=== PATIENT | male | born 1995 | race Caucasian/White ===

== ENCOUNTER → 2017-08-28 | Outpatient (CLI) | payer OTHER ==
[2011-09-09 01:43] VITALS: BP 100/74
[~2017-08-28] MED LIST: ALEVE220 MG PO; CEPHALEXIN500 M2 PO; IBUPROFEN200 MG PO; TYLENOL EXTRA500 M1 PO
[2017-08-28 09:48] LABS: ALBUMIN 4.2 g/dL (3.5-5.0); BUN/CREATININE RATIO 21.4 (6.0-26.0); CALCIUM 9.8 mg/dL (8.4-10.2); POTASSIUM 4.5 mmol/L (3.6-5.0); TOTAL BILIRUBIN 0.5 mg/dL (0.2-1.3); TOTAL PROTEIN 7.4 g/dL (6.3-8.2)
[2017-08-28 09:53] LABS: HEMATOCRIT 45.3 % (42.0-52.0); HEMOGLOBIN 14.8 g/dL (13.5-18.0); MEAN PLATELET VOLUME 9.6 fl (7.4-10.4); RED BLOOD COUNT 4.67 M/mm3 (4.20-5.60); RED CELL DISTRIBUTION WIDTH 12.5 % (11.5-14.5); WHITE BLOOD COUNT 6.1 K/mm3 (4.8-10.8)
== END ==
LOC: LAB 09:03
PROVIDERS: Family Medicine
DX: F33.42 Major depressive disorder, recurrent, in full remission (principal); E66.3 Overweight

== ENCOUNTER → 2018-02-15 | Outpatient (CLI) | payer OTHER ==
[2011-09-09 01:43] VITALS: BP 100/74
[2018-02-19 13:23] LABS: HERPES SIMPLEX TYPE 1 Positive (Negative); HERPES SIMPLEX TYPE 2 Positive (Negative)
== END ==
LOC: LAB 16:55
PROVIDERS: Family Medicine
DX: Z20.2 Contact with and (suspected) exposure to infections with a predominantly sexual mode of transmission (principal)

== ENCOUNTER → 2019-09-05 | Outpatient (CLI) | payer BC ==
[2011-09-09 01:43] VITALS: BP 100/74
[2019-09-05 16:31] LABS: EOS # 0.1 (0.04-0.40); EOS % 2.6 % (0.0-4.0); HEMATOCRIT 47.1 % (42.0-52.0); HEMOGLOBIN 15.6 g/dL (13.5-18.0); LYMPH# 1.3 (1.50-4.00); MEAN CELL VOLUME 96 fl (78-100); MEAN CORPUSCULAR HEMOGLOBIN 32 pg (27-31); MEAN CORPUSCULAR HGB CONC 33 g/dL (33-37); MEAN PLATELET VOLUME 8.6 fl (7.4-10.4); MONO # 0.6 (0.20-0.80); NEU # 3.3 (1.40-6.50); PLATELET COUNT 373 K/mm3 (130-400); RED BLOOD COUNT 4.92 M/mm3 (4.20-5.60); RED CELL DISTRIBUTION WIDTH 12.8 % (11.5-14.5); WHITE BLOOD COUNT 5.3 K/mm3 (4.8-10.8)
[2019-09-05 16:39] LABS: ALBUMIN 4.7 g/dL (3.5-5.0); POTASSIUM 4.4 mmol/L (3.5-5.1)
[2019-09-05 16:40] LABS: CALCIUM 9.9 mg/dL (8.3-10.5)
[2019-09-05 16:43] LABS: TOTAL BILIRUBIN 0.7 mg/dL (0.2-1.2)
== END ==
LOC: LAB 16:17 → AMSURD 16:17
PROVIDERS: Family Medicine
DX: Z00.00 Encounter for general adult medical examination without abnormal findings (principal); E78.5 Hyperlipidemia, unspecified; R00.2 Palpitations; R53.83 Other fatigue

== ENCOUNTER → 2020-07-06 | Outpatient (CLI) | payer BC ==
[2011-09-09 01:43] VITALS: BP 100/74
== END ==
LOC: LAB 12:37
DX: R50.9 Fever, unspecified (principal); R51.9 Headache, unspecified; M79.10 Myalgia, unspecified site; Z20.828 Contact with and (suspected) exposure to other viral communicable diseases

== ENCOUNTER → 2021-04-01 | Outpatient (CLI) | payer BC ==
[2021-04-01 12:37] LABS: BASO # 0.03 (0.02-0.10); EOS # 0.11 (0.04-0.40); EOS % 1.6 % (0.0-4.0); HEMATOCRIT 45.4 % (42.0-52.0); HEMOGLOBIN 15.1 g/dL (13.5-18.0); LYMPH# 1.71 (1.50-4.00); MEAN CELL VOLUME 97 fl (78-100); MEAN CORPUSCULAR HEMOGLOBIN 32 pg (27-31); MEAN CORPUSCULAR HGB CONC 33 g/dL (33-37); MEAN PLATELET VOLUME 8.5 fl (7.4-10.4); MONO # 0.48 (0.20-0.80); NEU # 4.48 (1.40-6.50); PLATELET COUNT 310 K/mm3 (130-400); RED CELL DISTRIBUTION WIDTH 11.8 % (11.5-14.5); WHITE BLOOD COUNT 6.8 K/mm3 (4.8-10.8)
[2021-04-01 13:01] LABS: ALBUMIN 4.3 g/dL (3.5-5.0); POTASSIUM 4.9 mmol/L (3.5-5.1)
[2021-04-01 13:03] LABS: CALCIUM 9.3 mg/dL (8.3-10.5)
[2021-04-01 13:04] LABS: TOTAL PROTEIN 7.5 g/dL (6.4-8.3)
[2021-04-01 13:06] LABS: TOTAL BILIRUBIN 0.4 mg/dL (0.2-1.2)
[2021-04-01 13:10] LABS: URINE APPEARANCE CLEAR; URINE BILIRUBIN NEGATIVE (NEGATIVE); URINE BLOOD NEGATIVE (NEGATIVE); URINE COLOR YELLOW; URINE GLUCOSE NEGATIVE (NEGATIVE); URINE KETONE NEGATIVE (NEGATIVE); URINE LEUKOCYTE ESTERASE NEGATIVE (NEGATIVE); URINE NITRATE NEGATIVE (NEGATIVE); URINE PROTEIN(semi-quant) NEGATIVE (NEGATIVE); URINE UROBILINOGEN NORMAL (NORMAL); URINE WBC 0-1 /hpf (0-3)
== END ==
LOC: LAB 12:08
PROVIDERS: Family Medicine
DX: R10.9 Unspecified abdominal pain (principal)

== ENCOUNTER → 2021-12-27 | Outpatient (CLI) | payer BC | LOC: RAD 12:27 | DX: S99.912A Unspecified injury of left ankle, initial encounter (principal); X58.XXXA Exposure to other specified factors, initial encounter ==

== ENCOUNTER → 2022-05-16 | Outpatient (CLI) | payer BC ==
[2022-05-16 15:06] LABS: BASO # 0.01 K/mm3 (0.02-0.10); EOS % 1.2 % (0.0-4.0); HEMOGLOBIN 15.4 g/dL (13.5-18.0); LYMPH# 1.58 K/mm3 (1.50-4.00); MEAN CELL VOLUME 96 fl (78-100); MEAN CORPUSCULAR HEMOGLOBIN 32 pg (27-31); MEAN CORPUSCULAR HGB CONC 34 g/dL (33-37); MEAN PLATELET VOLUME 8.5 fl (7.4-10.4); MONO # 0.56 K/mm3 (0.20-0.80); NEU # 5.72 K/mm3 (1.40-6.50); PLATELET COUNT 343 K/mm3 (130-400); RED BLOOD COUNT 4.78 M/mm3 (4.20-5.60); RED CELL DISTRIBUTION WIDTH 12.6 % (11.5-14.5)
[2022-05-16 15:15] LABS: POTASSIUM 4.3 mmol/L (3.5-5.1)
[2022-05-16 15:16] LABS: ALBUMIN 4.6 g/dL (3.5-5.0)
[2022-05-16 15:17] LABS: CALCIUM 9.9 mg/dL (8.3-10.5)
[2022-05-16 15:18] LABS: TOTAL PROTEIN 7.7 g/dL (6.4-8.3)
[2022-05-16 15:20] LABS: TOTAL BILIRUBIN 0.7 mg/dL (0.2-1.2)
== END ==
LOC: LAB 14:53
PROVIDERS: Family Medicine
DX: Z00.00 Encounter for general adult medical examination without abnormal findings (principal); F31.81 Bipolar II disorder; G47.419 Narcolepsy without cataplexy; F90.9 Attention-deficit hyperactivity disorder, unspecified type; E78.5 Hyperlipidemia, unspecified; F41.1 Generalized anxiety disorder; F10.10 Alcohol abuse, uncomplicated; J30.2 Other seasonal allergic rhinitis; Z72.0 Tobacco use; L73.9 Follicular disorder, unspecified

== ENCOUNTER → 2023-06-01 | Outpatient (CLI) | payer OTHER ==
[~2023-06-01] MED LIST changes: +ADDERALL XR30 MG PO; +FLUOXETINE40 MG PO; +MODAFINIL200 MG PO
== END ==
LOC: RAD 16:47
DX: J06.9 Acute upper respiratory infection, unspecified (principal); J02.9 Acute pharyngitis, unspecified; R53.1 Weakness

== ENCOUNTER → 2023-06-18 | Outpatient (CLI) | payer OTHER ==
[2023-06-18 11:48] LABS: BASO # 0.04 K/mm3 (0.02-0.10); EOS # 0.18 K/mm3 (0.04-0.40); EOS % 2.5 % (0.0-4.0); HEMATOCRIT 44.6 % (42.0-52.0); MEAN CELL VOLUME 96 fl (78-100); MEAN CORPUSCULAR HEMOGLOBIN 32 pg (27-31); MEAN CORPUSCULAR HGB CONC 34 g/dL (33-37); MEAN PLATELET VOLUME 8.7 fl (7.4-10.4); MONO # 0.51 K/mm3 (0.20-0.80); NEU # 4.39 K/mm3 (1.40-6.50); PLATELET COUNT 362 K/mm3 (130-400); RED BLOOD COUNT 4.63 M/mm3 (4.20-5.60); RED CELL DISTRIBUTION WIDTH 12.7 % (11.5-14.5); WHITE BLOOD COUNT 7.3 K/mm3 (4.8-10.8)
[2023-06-18 12:01] LABS: ALBUMIN 4.3 g/dL (3.5-5.0)
[2023-06-18 12:02] LABS: CALCIUM 9.2 mg/dL (8.3-10.5)
[2023-06-18 12:04] LABS: TOTAL PROTEIN 7.5 g/dL (6.4-8.3)
[2023-06-18 12:05] LABS: TOTAL BILIRUBIN 0.4 mg/dL (0.2-1.2)
== END ==
LOC: LAB 11:34
PROVIDERS: Family Medicine
DX: Z00.00 Encounter for general adult medical examination without abnormal findings (principal); E78.5 Hyperlipidemia, unspecified; F90.9 Attention-deficit hyperactivity disorder, unspecified type; F32.A Depression, unspecified